=== PATIENT | female | born 1980 | race Two or more races ===

== ENCOUNTER 2017-09-17 14:50 | Observation (INO) | payer OTHER ==
[2017-09-17] MEDS ORDERED: SODIUM CHLORIDE 1,000 ML IV STA (14:59)
--- NOTE | 2017-09-17 14:59 | PDOC ---
Rapid Medical Evaluation Time Seen by Provider: 09/17/17 14:54 Medical Evaluation: 09/17/17 14:54 I have performed a brief in-person evaluation of this patient. The patient presents with a chief complaint of: sent in by PCP Luna, febrile x 5 days with abdominal pain, sweats, 30-40 episodes over past few days, vomited 8 times, muscle pain everywhere, "right kidney pain right under rib", concern for hemolytic uremic syndrome or acute renal failure, denies recent travel, drug use Pertinent physical exam findings: R CVAT I have ordered the following: labs, fluids, zofran The patient will proceed to the ED for further evaluation. Discharge Disposition - Diagnosis Abdominal pain - Referrals - Patient Instructions - Post Discharge Activity
[2017-09-17 15:02] VITALS: BMI 25.7
[2017-09-17] MEDS ORDERED: ONDANSETRON 4 MG/2 ML VIAL IVPUSH ONE (16:05)
[2017-09-17 16:19] LABS: BASO % 0.5 % (0-2.0); EOS % 0.7 % (0-4.5); HEMATOCRIT 41.5 % (32.4-45.2); HEMOGLOBIN 14.7 GM/dL (10.7-15.3); LYMPH % 33.2 % (8-40); MCH 31.8 pg (25.7-33.7); MCHC 35.4 g/dl (32.0-36.0); MEAN CELL VOLUME 89.9 fl (80-96); MEAN PLT VOLUME 8.1 fl (7.5-11.1); NEUT % 56.6 % (42.8-82.8); PLATELET COUNT 223 K/MM3 (134-434); RBC 4.62 M/mm3 (3.60-5.2); RDW 13.4 % (11.6-15.6); WHITE BLOOD COUNT 4.4 K/mm3 (4.0-10.0)
[2017-09-17 16:29] LABS: HCG,QUALITATIVE URINE NEGATIVE
[2017-09-17] MEDS ORDERED: ONDANSETRON 4 MG/2 ML VIAL ONE (16:29)
[2017-09-17 16:41] LABS: ALBUMIN 3.3 g/dl (3.4-5.0); ANION GAP 6 (8-16); BLOOD UREA NITROGEN 7 mg/dL (7-18); CALCIUM 7.8 mg/dL (8.5-10.1); CHLORIDE 108 mmol/L (98-107); CO2 25 mmol/L (21-32); CREATININE 0.6 mg/dL (0.55-1.02); GLUCOSE,RANDOM 82 mg/dL (74-106); LIPASE 103 U/L (73-393); POTASSIUM 3.9 mmol/L (3.5-5.1); SGOT/AST 21 U/L (15-37); SGPT/ALT 14 U/L (12-78); SODIUM 139 mmol/L (136-145)
[2017-09-17 16:43] LABS: ALK PHOS 41 U/L (45-117); BILIRUBIN,TOTAL 0.3 mg/dL (0.2-1.0); TOT PROT 6.8 g/dl (6.4-8.2)
--- NOTE | 2017-09-17 16:50 | PDOC ---
History of Present Illness - General Chief Complaint: Nausea/Vomiting Stated Complaint: SENT BY PCP Time Seen by Provider: 09/17/17 14:54 History Source: Patient Exam Limitations: No Limitations - History of Present Illness Initial Comments: 09/17/17 16:37 HPI: This 37-year-old female presents to the emergency room per her physician's request due to extensive loose stool for over a week. She's lost 10 pounds. She' s been drinking a lot of Gatorade however she's been having nausea and vomiting as well. She was away at [facility] in over 2 weeks ago, she was fine for a week after visiting there. She also had recent sushi and not sure if this caused either. She has not been eating anything. She's been trying to keep Gatorade in. She does have abdominal cramping, it may radiate sometimes to the back. There is a concern for C. difficile/Escherichia coli and she was sent to the emergency room for probable admission. Chief Compliant: Nausea, vomiting, diarrhea with bouts of fever PMH: depression, anxiety, FH: Pt has not recently traveled outside the country in the last 30 days. Pt has not been in contact with people who have traveled out of the country, in contact with people who have been ill with fever, n, v, d. SH: smoking use: NONE illicit drug use: NONE alcohol use: NONE lives with and two children, one with special needs. PSH: none Home med use noted on JUL Allergies:nka Immunizations: PCP: Ji Kang PERSONNEL ANALYST: LMP: G P : 09/17/17 16:54 Past History - Past Medical History Allergies/Adverse Reactions: Allergies Allergy/AdvReac Type Severity Reaction Status Date / Time No Known Allergies Allergy Verified 09/17/17 15:02 Home Medications: Ambulatory Orders Alprazolam 0.5 mg PO DAILY PRN 09/17/17 Ondansetron [Zofran -] 4 mg PO PRN PRN 09/17/17 Sertraline HCl 50 mg PO DAILY 09/17/17 COPD: No - Immunization History Immunization Up to Date: Yes - Suicide/Smoking/Psychosocial Hx Smoking History: Never smoked Have you smoked in the past 12 months: No Information on smoking cessation initiated: No Hx Alcohol Use: No Drug/Substance Use Hx: No Substance Use Type: None Review of Systems - Review of Systems Able to Perform ROS?: Yes Comments:: 09/17/17 17:05 General statement: Loose stool for one week Hematology: neg history of bleeding/blood thinners Skin: Neg for lesions, rash, bruising. HEENT: Neg symptoms Respiratory: Neg SOB or difficulty in breathing Cardiac: Neg chest pain GI: + diffuse pain,+ n/v/d : Neg problems on voiding MS: Neg for joint pain/stiffness, no edema Neuro: Neg for LOC, weakness, Endocrine: Neg for excess thirst/hunger, cold/heat intolerance, excess sweating Allergies: Neg for allergies *Physical Exam - Vital Signs Last Vital Signs Temp Pulse Resp BP Pulse Ox 98.2 F 93 H 16 111/81 100 09/17/17 14:58 09/17/17 14:58 09/17/17 14:58 09/17/17 14:58 09/17/17 14:58 - Physical Exam Comments: 09/17/17 17:05 General Appearance: This 37 yr old female with diarrhea, 10 lb weight lose, nausea, vomiting, fever. V/S: hemodynamically stable, afebrile current Skin: WNL of pt's skin color, no signs of pallor, mottling, cyanosis Head:symmetrical Eyes: EOM's intact, PERRLA Ears: denies pain Nose: patent Throat: lips, teeth, gums, tongue, buccal mucos pink and moist Lungs: Chest symmetry equal. Cap refill <3 seconds. Lung sounds clear Cardiac: PMI at R 4MCL space, pos S1 and S2, regular rate. Abdomen: Soft, round, + tender 3 loose bm this time : Not observed Muscularskeletal: Gait steady, ambulated in to ER, no edema +PMS Neuro: AAOx3, cognitively intact, speech clear and appropriate. ED Treatment Course - LABORATORY CBC & Chemistry Diagram: 09/17/17 15:34 09/17/17 15:34 - ADDITIONAL ORDERS Additional order review: Laboratory Results 09/17/17 15:31 Urine HCG, Qual Negative 09/17/17 15:34 RBC 4.62 MCV 89.9 MCHC 35.4 RDW 13.4 MPV 8.1 Neutrophils % 56.6 Lymphocytes % 33.2 Monocytes % 9.0 Eosinophils % 0.7 Basophils % 0.5 - RADIOLOGY Radiology Studies Ordered: Category Date Time Status ABDOMEN & PELVIS CT W/O CONTR [CT] Stat CT Scan 09/17/17 16:03 Ordered - Medications Given in the ED: ED Medications Discontinued Medications Generic Name Dose Route Start Last Admin Trade Name Parish PRN Reason Stop Dose Admin Sodium Chloride 1,000 mls @ 1,000 mls/hr 09/17/17 14:59 09/17/17 15:35 Normal Saline - IV 09/17/17 15:58 1,000 mls/hr ASDIR STA Administration Medical Decision Making - Medical Decision Making 09/17/17 17:07 A/P: 35 normally healthy 37 yr old female recent loose stool, n, v, 10 lbs weight lose, fevers on and off for one week -stool cx -stool occult -labs with electrolytes -IVF and lab repletements -zofran -ua -isolation r/o c diff 09/17/17 17:[address] neg for any findings labs stable IVF continue Diarrhea and lack of appeitite continue. *DC/Admit/Observation/Transfer Diagnosis at time of Disposition: Dehydration fever Abdominal pain Qualifiers: Abdominal location: generalized Qualified Code(s): R10.84 - Generalized abdominal pain - Discharge Dispostion Admit: Yes - Referrals Referrals: Harinder Carrasco [Primary Care Provider] - - Patient Instructions - Post Discharge Activity
--- NOTE | 2017-09-17 18:03 | PN ---
Teaching Attending Note Name of Resident: Micki Cameron ATTENDING PHYSICIAN STATEMENT I saw and evaluated the patient. I reviewed the resident's note and discussed the case with the resident. I agree with the resident's findings and plan as documented. SUBJECTIVE:37yo F with no PMH presenting to the ER due to persistent diarrhea. Diarrhea started all of a sudden on friday after eating some lox. assoc with abdominal cramping, flatulence and nausea. intermittent fever, highest recorded 102. has been unable to keep any food down at this time causing a 10lb weight loss. was at [employer] last week. no sick contacts and no one at home is sick. no reptiles in the house. has a disabled son who goes to many child programs throughout the week but he has not been sick. no increase stressors. no episodes in the past and is fairly regular (once a day) no autoimmune disease in the family. no hx of cancers. never had colonoscopy. OBJECTIVE: Last Vital Signs Temp Pulse Resp BP Pulse Ox 98.2 F 93 H 16 111/81 100 09/17/17 14:58 09/17/17 14:58 09/17/17 14:58 09/17/17 14:58 09/17/17 14:58 General mild distress due to pain CV S1 S2 RRR no murmur/rub/gallop Lungs CTA B/L no wheezing/rales/rhonchi Abdomen soft, slightly distended, RLQ/LLQ tenderness hypoactive BS Extremities no pedal edema rectal no external hemorrhoids, no stool or blood in rectal vault ASSESSMENT AND PLAN: 37yo F with no PMH presenting to the ER due to persistent diarrhea 1. Persistent diarrhea-likely infectious however can not r/o malabsorption or autoimmune. check stools for cdiff, O&P, bacterial infections, fecal fat. check CRP/ESR/TSH/vitamin B12. Gi consulted. may require colonoscopy. will trial clear liquid diet. cont IVF with pain and nausea control. can consider loperamide once cdiff is r/o. 2. DVT ppx-lovenox
[2017-09-17] MEDS ORDERED: ONDANSETRON 4 MG/2 ML VIAL IVPB PRN (18:38)
--- NOTE | 2017-09-17 18:40 | HP ---
CHIEF COMPLAINT: " Diarrhoea and I lost 10 lbs in 5 days" PCP: Dr. Gisselle Workman HISTORY OF PRESENT ILLNESS: Patient is a 37 year old female was sent from her PCP's office for evaluation of diarrhoea. As per the patient, she started having lose stool 5 days ago, clear, watery, yellowish in color, no blood, > 20 episodes/day, fowl smelling, bulky initially associated with nausea, burping and belching. It was associated with fever of 102 controlled with tylenol, had chills, sweating but no rigors. Patient then went to her PCP on 3 days ago for evaluation of diarrhea and was also diagnosed to have UTI (UA in the office: RBC 10, Bilirubin 4mg/dl; UB mg/dl; Protein 100 mg/dl; ketones 300, LE-75), was prescribed Nitrofurantoin 100mg BID (has taken 5 pills so far). Patient also complaints of crampy abdomen, 4/10 in intensity, intermittent, non radiating, tenesmus + About 2 weeks ago pt was at [facility] in [place], but didn't have any symptoms at that time. Denies dysuria, hematuria, urinary incontinence, increased frequency. Appetite has been decreased. Drinking Gadorade. Lost 10 Lbs since 5 days. Sleep disturbed. No h/o autoimmune disorders, no pets at home. Pt says that she takes care of 3 yrs old son who has genetic disorder and goes for almost 21 treatments a week, different places and day cares. No sick contacts. ER course was notable for: (1) Temp 100.6 F, hemodynamically stable (2) Abd/Pelvis CT: No acute pathology. 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 Smoking: Denies Alcohol: 2 glasses of wine daily, last drink 5 days ago. Drugs: Denies Family History: Non contributory Allergies No Known Allergies Allergy (Verified 09/17/17 15:02) HOME MEDICATIONS: Home Medications Medication Instructions Recorded Alprazolam 0.5 mg PO DAILY PRN 09/17/17 Ondansetron [Zofran -] 4 mg PO PRN PRN 09/17/17 Sertraline HCl 50 mg PO DAILY 09/17/17 REVIEW OF SYSTEMS CONSTITUTIONAL: Absent: fever, chills, diaphoresis, generalized weakness, malaise, loss of appetite, weight change HEENT: Absent: rhinorrhea, nasal congestion, throat pain, throat swelling, difficulty swallowing, mouth swelling, ear pain, eye pain, visual changes CARDIOVASCULAR: Absent: chest pain, syncope, palpitations, irregular heart rate, lightheadedness , peripheral edema RESPIRATORY: Absent: cough, shortness of breath, dyspnea with exertion, orthopnea, wheezing, stridor, hemoptysis GASTROINTESTINAL: Present: abdominal pain, nausea, vomiting, diarrhoea. Absent: abdominal distension, constipation, melena, hematochezia GENITOURINARY: Absent: dysuria, frequency, urgency, hesitancy, hematuria, flank pain, genital pain MUSCULOSKELETAL: Absent: myalgia, arthralgia, joint swelling, back pain, neck pain SKIN: Absent: rash, itching, pallor HEMATOLOGIC/IMMUNOLOGIC: Absent: easy bleeding, easy bruising, lymphadenopathy, frequent infections ENDOCRINE: Absent: unexplained weight gain, unexplained weight loss, heat intolerance, cold intolerance NEUROLOGIC: Absent: headache, focal weakness or paresthesias, dizziness, unsteady gait, seizure, mental status changes, bladder or bowel incontinence PSYCHIATRIC: Absent: anxiety, depression, suicidal or homicidal ideation, hallucinations. PHYSICAL EXAMINATION Vital Signs - 24 hr 09/17/17 14:58 Temperature 98.2 F Pulse Rate 93 H Respiratory 16 Rate Blood Pressure 111/81 O2 Sat by Pulse 100 Oximetry (%) GENERAL: Young female, Awake, alert, and fully oriented, in no acute distress. HEAD: Normal with no signs of trauma. EYES: EOM intact, no pallor or icterus. EARS, NOSE, THROAT: Ears normal. Moist mucous membranes. NECK: Supple. LUNGS: Breath sounds equal, clear to auscultation bilaterally. No wheezes, and no crackles. No accessory muscle use. HEART: Regular rate and rhythm, normal S1 and S2 without murmur. ABDOMEN: Soft, tenderness on the left and right lower quadrant, not distended, normoactive bowel sounds, no guarding, no rebound, no masses. No hepatomegaly or splenomegaly. MUSCULOSKELETAL: Normal range of motion at all joints. No bony deformities or tenderness. No CVA tenderness. UPPER EXTREMITIES: 2+ pulses, warm, well-perfused. No cyanosis. No clubbing. No peripheral edema. LOWER EXTREMITIES: 2+ pulses, warm, well-perfused. No calf tenderness. No peripheral edema. NEUROLOGICAL: No facial droop, Cranial nerves II-XII intact. Normal speech. Normal gait. PSYCHIATRIC: Cooperative. Good eye contact. Appropriate mood and affect. SKIN: Warm, dry, normal turgor, no rashes or lesions noted, normal capillary refill. Laboratory Results - last 24 hr 09/17/17 09/17/17 09/17/17 15:31 15:34 15:34 WBC 4.4 RBC 4.62 Hgb 14.7 Hct 41.5 MCV 89.9 MCH 31.8 MCHC 35.4 RDW 13.4 Plt Count 223 MPV 8.1 Neutrophils % 56.6 Lymphocytes % 33.2 Monocytes % 9.0 Eosinophils % 0.7 Basophils % 0.5 Sodium 139 Potassium 3.9 Chloride 108 H Carbon Dioxide 25 Anion Gap 6 L BUN 7 Creatinine 0.6 Creat Clearance w eGFR > 60 Random Glucose 82 Calcium 7.8 L Total Bilirubin 0.3 AST 21 ALT 14 Alkaline Phosphatase 41 L Total Protein 6.8 Albumin 3.3 L Lipase 103 Urine HCG, Qual Negative Stool Occult Blood 09/17/17 16:23 WBC RBC Hgb Hct MCV MCH MCHC RDW Plt Count MPV Neutrophils % Lymphocytes % Monocytes % Eosinophils % Basophils % Sodium Potassium Chloride Carbon Dioxide Anion Gap BUN Creatinine Creat Clearance w eGFR Random Glucose Calcium Total Bilirubin AST ALT Alkaline Phosphatase Total Protein Albumin Lipase Urine HCG, Qual Stool Occult Blood Negative Abd/Pelvis CT: No acute pathology. Multiple mesenteric Lymph nodes in LUQ and LLQ ASSESSMENT/PLAN: Patient is a 37 year old female with past medical hx of Depression, Anxiety was sent from her PCP's office for evaluation of diarrhoea. # Diarrhoea- unknown cause c/o > 20 lose stool diarrhoea, no blood, x 5 days, associated with nausea and belching, fever, lost 10 lbs in 5days. R/O infectious cause-viral vs bacteria, inflammatory, autoimmune, HIV CT abdomen/Pelvis: No acute pathology Admit in Med-Surg/Obs IV NS @ 125 mls.hr IV Zofran 4mg Q6H PRN IV Tylenol 650mg PO Q6H PRN for fever No antibiotics at this time. Stool cultures, stool studies-ova, parasite, salmonella/shigella, vibrio sent GI consult requested HIV test sent (verbal consent taken). # Asymptomatic shaista Was treated with Nitrofurantoin as outpatient. She is asymptomatic so will not treat her at this time. # Depression/Anxiety Continue Xanax and Sertraline # FEN IV NS @ 125 mls/hr Electrolytes WNL Liquid diet, advance as tolerated # Prophylaxis For DVT: Lovenox 40mg sq daily For GI: Not indicated # Code Status: Full Code # Dispo: Admit in Med-Surg/Obs. Illness, Investigation and Plan of care explained to the patient. She verbalized understanding. Case seen and discussed with Dr. Camargo. Visit type - Emergency Visit Emergency Visit: Yes ED Registration Date: 09/17/17 Care time: The patient presented to the Emergency Department on the above date and was hospitalized for further evaluation of their emergent condition. - New Patient This patient is new to me today: Yes Date on this admission: 09/17/17 - Critical Care Critical Care patient: No Hospitalist Screening - Colonoscopy Questionnaire Colonoscopy Questionnaire: Colonoscopy Questionnaire - Patient: 50 - 75 years old and never had a screening colonoscopy: No History of colon or rectal polyps, or CA: No History of IBD, Crohn's disease or UC: No History of abdominal radiation therapy as a child: No - Relative: 1 with colon or rectal CA, or polyps at age 60 or younger: No Colon or rectal CA diagnosed at age 45 or younger: No Multiple relatives with colon or rectal CA: No - Outcome: Screening Result: Negative Screen
[2017-09-17] MEDS ORDERED: ACETAMINOPHEN 325 MG TABLET (FP) ONE (19:27)
[2017-09-17] MEDS ORDERED: ALPRAZolam 0.25 MG TABLET PO PRN (19:29)
[2017-09-17] MEDS: ACETAMINOPHEN 325 MG TABLET (FP) PO PRN (19:43)
[2017-09-17] MEDS: SODIUM CHLORIDE 1,000 ML IV SCH (19:43)
[2017-09-17] MEDS ORDERED: SERTRALINE HCL 50 MG TABLET (FP) ONE (19:58)
[2017-09-17] MEDS: SERTRALINE HCL 50 MG TABLET (FP) PO SCH (20:19)
[2017-09-17 21:00] LABS: URINE APPEARANCE SLCLOUDY; URINE BILIRUBIN NEGATIVE (<2.0 mg/dL); URINE BLOOD 1+ (NEGATIVE); URINE COLOR AMBER; URINE GLUCOSE (UA) NEGATIVE (NEGATIVE); URINE KETONE 1+ (NEGATIVE); URINE LEUK ESTERASE TRACE (NEGATIVE); URINE NITRITE NEGATIVE (NEGATIVE); URINE UROBILINOGEN NEGATIVE mg/dL (0.2-1.0)
[2017-09-17 21:02] LABS: URINE PROTEIN 1+ (NEGATIVE)
[2017-09-17 21:03] LABS: EPI CELLS RARE /HPF (FEW); URINE BACTERIA RARE /hpf (NONE SEEN); URINE MUCUS RARE
[2017-09-18] MEDS: SODIUM CHLORIDE 1,000 ML IV SCH (00:40)
--- NOTE | 2017-09-18 06:55 | PN ---
Physical Exam: 24H Events: Yesterday: diarrhea after eating regular food in ED O/N: 3x episodes BM, more formed and not malodorous AM: tolerated Clears liquid for breakfast SUBJECTIVE: Patient seen and examined. No fever, chills, n/v, abdominal pain. Denies any urinary symptoms. BM frequency declining, and stools more formed. Wishes to go home as have young children at home. OBJECTIVE: Vital Signs Period Temp Pulse Resp BP Sys/Crowell Pulse Ox Last 24 Hr 98.1 F-101 F 65-93 16-20 100-111/52-81 98-100 General: lying comfortably in bed, nad and well-appearing Heart: rrr, normal s1/s2 Lungs: CTAB Abd: soft, non-distended, mild ttp LLQ>LUQ Ext: 2+DP pulses, wwp, no edema CBC, BMP 09/18/17 06:30 09/18/17 06:30 Hepatic Panel Total Bilirubin 0.3 mg/dL (0.2-1.0) 09/17/17 15:34 AST 21 U/L (15-37) 09/17/17 15:34 ALT 14 U/L (12-78) 09/17/17 15:34 Alkaline Phosphatase 41 U/L (45-117) L 09/17/17 15:34 Albumin 3.3 g/dl (3.4-5.0) L 09/17/17 15:34 CRP - 5.3 (H) ESR - 11 TSH - 1.30 Active Medications Acetaminophen (Tylenol -) 650 mg PO Q6H PRN PRN Reason: PAIN LEVEL 7 - 10 Last Admin: 09/17/17 19:43 Dose: 650 mg Alprazolam (Xanax -) 0.5 mg PO Q24H PRN PRN Reason: ANXIETY Enoxaparin Sodium (Lovenox -) 40 mg SQ DAILY [facility] Sodium Chloride (Normal Saline -) 1,000 mls @ 125 mls/hr IV ASDIR [facility] Last Admin: 09/18/17 00:40 Dose: 125 mls/hr Ondansetron HCl (Zofran Injection) 4 mg IVPB Q6H PRN PRN Reason: NAUSEA Last Admin: 09/18/17 00:47 Dose: 4 mg Sertraline HCl (Zoloft -) 50 mg PO DAILY [facility] Last Admin: 09/17/17 20:19 Dose: 50 mg ASSESSMENT/PLAN: 37yo woman with PMH of depression and anxiety who sent from PCP office for evaluation of acute onset non-bloody, watery diarrhea. #diarrhea, unclear etiology, improved since admission, CT A/P w/o acute findings, ESR and CRP mildly elevated c/w inflammatory process, TSH wnl, HIV neg -GI consulted -Celiac panel pending -Infectious w/u pending: C diff, Stool culture, O&P -TSH wnl -Zofran PRN for nausea -IVFs -Continue Clear diet #depression/anxiety - c/w home Xanax and Sertraline #FEN NS@125cc lyte wnl Clear #PPX - Lovenox SQ QD #DISPO - Obs m/s, possible discharge this evening if okay with GI and patient remains afebrile w/o worsening symptoms Full Code d/w Dr. Raman Lindsey MD PGY1 - Internal Medicine Visit type - Emergency Visit Emergency Visit: No - New Patient This patient is new to me today: Yes Date on this admission: 09/18/17 - Critical Care Critical Care patient: No
[2017-09-18 08:04] LABS: HEMATOCRIT 36.8 % (32.4-45.2); MCH 31.6 pg (25.7-33.7); MCHC 35.4 g/dl (32.0-36.0); MEAN CELL VOLUME 89.3 fl (80-96); MEAN PLT VOLUME 7.7 fl (7.5-11.1); PLATELET COUNT 198 K/MM3 (134-434); RBC 4.13 M/mm3 (3.60-5.2); WHITE BLOOD COUNT 3.4 K/mm3 (4.0-10.0)
[2017-09-18 08:23] LABS: ANION GAP 6 (8-16); BLOOD UREA NITROGEN 4 mg/dL (7-18); CALCIUM 7.3 mg/dL (8.5-10.1); CHLORIDE 112 mmol/L (98-107); CO2 25 mmol/L (21-32); GLUCOSE,RANDOM 87 mg/dL (74-106); POTASSIUM 3.5 mmol/L (3.5-5.1); SODIUM 143 mmol/L (136-145)
[2017-09-18 08:26] LABS: CREATININE 0.5 mg/dL (0.55-1.02); PHOSPHOROUS 2.6 mg/dL (2.5-4.9)
[2017-09-18] MEDS ORDERED: ENOXAPARIN NA (PORCINE) 40 MG/0.4 ML DISP.SYRIN SQ SCH (10:00)
[2017-09-18] MEDS: SERTRALINE HCL 50 MG TABLET (FP) PO SCH (10:13)
[2017-09-18 10:38] LABS: ACANTHOCYTES 0; ANISOCYTOSIS 0; HELMET CELLS 0; HOWELL-JOLLY BODIES 0; MACROCYTOSIS 0; OVALOCYTE 0; PLATELET ESTIMATE NORMAL; ROULEAU 0; SICKELED CELLS 0; TARGET CELLS 0; TEAR DROP CELLS 0; TOXIC GRANULATION 0
[2017-09-18] MEDS: ACETAMINOPHEN 325 MG TABLET (FP) PO PRN (10:59)
--- NOTE | 2017-09-18 12:10 | PN ---
Teaching Attending Note Name of Resident: Marguerite Lindsey ATTENDING PHYSICIAN STATEMENT I saw and evaluated the patient. I reviewed the resident's note and discussed the case with the resident. I agree with the resident's findings and plan as documented. SUBJECTIVE:pain has mostly resolved. had 3 BM last night that were more formed. states only 1 this AM that was also formed. did have fever last night but no assoc chills. tolerating liquid diet. requesting to go home. denies CP, SOB, fever, chills, N/V OBJECTIVE: Last Vital Signs Temp Pulse Resp BP Pulse Ox 97.9 F 63 20 110/60 98 09/18/17 10:00 09/18/17 10:00 09/18/17 10:00 09/18/17 10:00 09/18/17 01:39 General NAD Abdomen soft, NT/ND, no rebound or guarding ASSESSMENT AND PLAN: 37yo F with no PMH presenting to the ER due to persistent diarrhea 1. Persistent diarrhea-likely infectious however can not r/o malabsorption or autoimmune. now resolved which points towards a viral cause. TSH WNL. HIV negative. awaiting stool studies. did have Tm 101 last night and was bryan- cultured. no results at this time. will wait for GI evaluation. f/u workup 2. DVT ppx-lovenox 3. pt requesting to go home as she has young children. stated will re-evaluate in the evening. if continues to do well, afebrile and if no furhter workup indicated inpatient per GI may send home in the evening.
--- NOTE | 2017-09-18 12:47 | MSN ---
Progress Note (SOAP) - Subjective Chief Complaint: diarrhea and weight loss History of Present Illness: Aurora Robertson is a 37 year old female with a PMHx of depression, anxiety, and recently diagnosed UTI. Patient stated that 5 days prior to admission she began to have clear, watery, yellowish, foul smelling, non-bloody diarrhea. Patient stated that she had greater than 20 episodes per day, up to 40 episodes on occasion. Patient stated that these episodes were associated with nausea, vomiting, cramping, burping. Patient also stated that she had fevers, chills, sweating. Patient also stated that she had lost 10lbs over the course of the illness. The patient had recent travel to [place] to the [facility], but stated that she did not have any foods out of her usual diet. Patient denied any changes in diet, sick contacts, lactose intolerance, history of GI issues, drinking unfiltered water. Recently the patient had gone to her PCP for evaluation of the diarrhea and was found to have a UTI based on UA. The patient was started on nitrofurantoin, the patient had completed 2 days worth of treatment prior to admission. The patient was admitted and started on IV NS at 125cc/hr, given Zofran, tylenol. Abdominal CT did not show any evidence of obstruction, diverticulitis, colitis but did show multiple prominent mesenteric lymph nodes in the LUQ and LLQ. Stool cultures, c diff toxin, TSH, ESR/CRP, O&P, FOBT were collected. Patient was seen and examined at the bedside. Patient stated that she had 3 episodes of diarrhea since her admission and 1 more this morning and stated that her stool were more formed than previously. Patient stated that she continued to have some episodes of nausea but were improved since admission with no more episodes of vomiting. Patient did endorse myalgias, weakness, mild headache, mild back pain. The patient denied chest pain, shortness of breath, abd pain at rest, numbness/tingling. Patient denied pain with bowel movements. - Current Medications Current Medications: Active Medications Acetaminophen (Tylenol -) 650 mg PO Q6H PRN PRN Reason: PAIN LEVEL 7 - 10 Last Admin: 09/18/17 10:59 Dose: 650 mg Alprazolam (Xanax -) 0.5 mg PO Q24H PRN PRN Reason: ANXIETY Enoxaparin Sodium (Lovenox -) 40 mg SQ DAILY [facility] Last Admin: 09/18/17 10:13 Dose: 40 mg Sodium Chloride (Normal Saline -) 1,000 mls @ 125 mls/hr IV ASDIR [facility] Last Admin: 09/18/17 00:40 Dose: 125 mls/hr Ondansetron HCl (Zofran Injection) 4 mg IVPB Q6H PRN PRN Reason: NAUSEA Last Admin: 09/18/17 00:47 Dose: 4 mg Sertraline HCl (Zoloft -) 50 mg PO DAILY [facility] Last Admin: 09/18/17 10:13 Dose: 50 mg - Objective Vital Signs: Vital Signs Temperature 97.9 F 09/18/17 10:00 Pulse Rate 63 09/18/17 10:00 Respiratory Rate 20 09/18/17 10:00 Blood Pressure 110/60 09/18/17 10:00 O2 Sat by Pulse Oximetry (%) 98 09/18/17 01:39 Constitutional: Yes: Well Nourished, No Distress, Calm Eyes: Yes: WNL, Conjunctiva Clear, EOM Intact HENT: Yes: WNL, Atraumatic, Normocephalic Neck: Yes: WNL, Supple, Trachea Midline Cardiovascular: Yes: WNL, Regular Rate and Rhythm, S1, S2 Respiratory: Yes: WNL, Regular, CTA Bilaterally Gastrointestinal: Yes: Normal Bowel Sounds, Soft, Tenderness (mild tenderness in the LUQ and LLQ) ...Rectal Exam: Yes: Deferred Musculoskeletal: Yes: Muscle Weakness (endorsed some weakness 2/2 tiredness, no focal tenderness or neuromuscular weakness) Extremities: Yes: WNL Peripheral Pulses WNL: Yes Peripheral Pulses: Left Radial: 2+, Right Radial: 2+, Left [place] Pedis: 2+, Right Dorsalis Pedis: 2+ Edema: No Integumentary: Yes: WNL Neurological: Yes: WNL, Alert, Oriented, Cran Nerves II-XII Intact ...Motor Strength: Yes: WNL Psychiatric: Yes: WNL, Alert, Oriented Labs Lab Results: CBC, BMP 09/18/17 06:30 09/18/17 06:30 Imaging - Results Cat Scan: Report Reviewed, Image Reviewed Problem List - Problems (1) Diarrhea Code(s): R19.7 - DIARRHEA, UNSPECIFIED (2) Abdominal pain Code(s): R10.9 - UNSPECIFIED ABDOMINAL PAIN Qualifiers: Abdominal location: generalized Qualified Code(s): R10.84 - Generalized abdominal pain Assessment/Plan Diarrhea - CT abdomen/Pelvis did not show any evidence of obstruction, diverticulitis, colitis. Did show multiple prominent mesenteric lymph nodes in LUQ and LLQ - FOBT negative - patient remained afebrile since admission, no WBC - patient improving symptomatically - NS at 125 cc/hr - IV Zofran 4mg q6h prn nausea/vomiting - IV Tylenol 650mg q6h prn fever - Stool cultures, stool studies, O&P pending - C diff negative - GI consult, recs appreciated - HIV negative - TSH/B12 within normal limits Depression/Anxiety - Continue home Xanax and Sertraline F/E/N - NS at 125cc/hr - Liquid diet, advance as tolerated - continue to monitor DVT Prophylaxis - Lovenox 40mg Disposition - Admitted to Med-Surg/Obs. Patient safe to be discharged home, to f/u outpatient
--- NOTE | 2017-09-18 14:37 | CON.GI ---
Consult Consult Specialty:: GI Reason for Consultation:: diarrhea, weight loss - History of Present Illness History of Present Illness: healthy, 37-year-old female who developed frequent, watery bowel movements over acute onset 5-6 days ago. Just prior to that had URI. was also diagnosed with UTI in the interim and to look 3 pills of antibiotics. her household members are asymptomatic. no history of eating out, changes in diet , medications, traveling, camping. Reports 5-10 pound weight loss over the last week. No history of chronic weight loss, dysphagia, odynophagia, dyspepsia , melena, hematochezia, hematemesis, mucus in stool, jaundice, low-grade fever. No personal, family history of inflammatory bowel disease. Does not take chronic NSAIDs. Tolerates gluten containing products and any product without issues. At the time of this encounter bowel habits have improved. He had one formed bowel movement today. Denies abdominal pain. Tolerating current diet and was to go home. - History Source History Provided By: Patient - Alcohol/Substance Use Hx Alcohol Use: No - Smoking History Smoking history: Never smoked Have you smoked in the past 12 months: No Home Medications - Allergies Allergies/Adverse Reactions: Allergies Allergy/AdvReac Type Severity Reaction Status Date / Time No Known Allergies Allergy Verified 09/17/17 15:02 - Home Medications Home Medications: Ambulatory Orders Alprazolam 0.5 mg PO DAILY PRN 09/17/17 Ondansetron [Zofran -] 4 mg PO PRN PRN 09/17/17 Sertraline HCl 50 mg PO DAILY 09/17/17 Family Disease History - Family Disease History Family History: Unremarkable (noncontributory) Review of Systems Findings/Remarks: as stated in the H&P and HPI Physical Exam-GI Vital Signs: Vital Signs Temperature 97.9 F 09/18/17 10:00 Pulse Rate 63 09/18/17 10:00 Respiratory Rate 20 09/18/17 10:00 Blood Pressure 110/60 09/18/17 10:00 O2 Sat by Pulse Oximetry (%) 98 09/18/17 01:39 Constitutional: Yes: Well Nourished, No Distress, Calm Eyes: Yes: Conjunctiva Clear HENT: Yes: Atraumatic Neck: Yes: Supple Cardiovascular: Yes: Regular Rate and Rhythm Respiratory: Yes: Regular Gastrointestinal Inspection: No: Ascites, Distention ...Auscultate: Yes: Normoactive Bowel Sounds ...Palpate: Yes: Firm/Rigid, Soft. No: Tenderness Neurological: Yes: Alert, Oriented Labs: CBC, BMP 09/18/17 06:30 09/18/17 06:30 Laboratory Tests 09/17/17 09/17/17 09/17/17 15:31 15:34 15:34 WBC 4.4 RBC 4.62 Hgb 14.7 Hct 41.5 MCV 89.9 MCH 31.8 MCHC 35.4 RDW 13.4 Plt Count 223 MPV 8.1 Neutrophils % 56.6 Neutrophils % (Manual) Band Neutrophils % Lymphocytes % 33.2 Lymphocytes % (Manual) Monocytes % 9.0 Monocytes % (Manual) Eosinophils % 0.7 Eosinophils % (Manual) Basophils % 0.5 Basophils % (Manual) Myelocytes % (Man) Promyelocytes % (Man) Blast Cells % (Manual) Nucleated RBC % Metamyelocytes Hypochromia Toxic Granulation Dohle Bodies Platelet Estimate Platelet Comment Polychromasia Poikilocytosis Basophilic Stippling Anisocytosis Microcytosis Macrocytosis Spherocytes Sickle Cells Target Cells Tear Drop Cells Ovalocytes Stomatocytes Helmet Cells [place] Bodies [place] Rings Cee Cells Acanthocytes (Spur) Rouleaux Fragmented RBCs Schistocytes ESR Sodium 139 Potassium 3.9 Chloride 108 H Carbon Dioxide 25 Anion Gap 6 L BUN 7 Creatinine 0.6 Creat Clearance w eGFR > 60 Random Glucose 82 Calcium 7.8 L Phosphorus Magnesium Total Bilirubin 0.3 AST 21 ALT 14 Alkaline Phosphatase 41 L C-Reactive Protein Total Protein 6.8 Albumin 3.3 L Lipase 103 Vitamin B12 TSH Urine Color Jaimee Urine Appearance Slcloudy Urine pH 5.0 Ur Specific [place] 1.020 Urine Protein 1+ H Urine Glucose (UA) Negative Urine Ketones 1+ H Urine Blood 1+ H Urine Nitrite Negative Urine Bilirubin Negative Urine Urobilinogen Negative Ur Leukocyte Esterase Trace Urine WBC (Auto) 7 Urine RBC (Auto) 8 Ur Epithelial Cells Rare Urine Bacteria Rare Urine Mucus Rare Urine HCG, Qual Negative Stool Neutral Fats Stool Total Fats Stool Occult Blood HIV 1&2 Antibody Screen HIV P24 Antigen 09/17/17 09/17/17 09/18/17 16:23 23:40 06:30 WBC RBC Hgb Hct MCV MCH MCHC RDW Plt Count MPV Neutrophils % Neutrophils % (Manual) Band Neutrophils % Lymphocytes % Lymphocytes % (Manual) Monocytes % Monocytes % (Manual) Eosinophils % Eosinophils % (Manual) Basophils % Basophils % (Manual) Myelocytes % (Man) Promyelocytes % (Man) Blast Cells % (Manual) Nucleated RBC % Metamyelocytes Hypochromia Toxic Granulation Dohle Bodies Platelet Estimate Platelet Comment Polychromasia Poikilocytosis Basophilic Stippling Anisocytosis Microcytosis Macrocytosis Spherocytes Sickle Cells Target Cells Tear Drop Cells Ovalocytes Stomatocytes Helmet Cells [place] Bodies [place] Rings [place] Cells Acanthocytes (Spur) Rouleaux Fragmented RBCs Schistocytes ESR Sodium Potassium Chloride Carbon Dioxide Anion Gap BUN Creatinine Creat Clearance w eGFR Random Glucose Calcium Phosphorus Magnesium Total Bilirubin AST ALT Alkaline Phosphatase C-Reactive Protein 5.3 H Total Protein Albumin Lipase Vitamin B12 TSH 1.30 Urine Color Urine Appearance Urine pH Ur Specific [place] Urine Protein Urine Glucose (UA) Urine Ketones Urine Blood Urine Nitrite Urine Bilirubin Urine Urobilinogen Ur Leukocyte Esterase Urine WBC (Auto) Urine RBC (Auto) Ur Epithelial Cells Urine Bacteria Urine Mucus Urine HCG, Qual Stool Neutral Fats Stool Total Fats Stool Occult Blood Negative HIV 1&2 Antibody Screen Negative HIV P24 Antigen Negative 09/18/17 09/18/17 09/18/17 06:30 06:30 06:30 WBC 3.4 L RBC 4.13 Hgb 13.0 D Hct 36.8 MCV 89.3 MCH 31.6 MCHC 35.4 RDW 13.0 Plt Count 198 MPV 7.7 Neutrophils % No Result Required. Neutrophils % (Manual) 32.3 L Band Neutrophils % 3.0 Lymphocytes % No Result Required. Lymphocytes % (Manual) 27.3 Monocytes % Monocytes % (Manual) 12 H Eosinophils % Eosinophils % (Manual) 0.0 Basophils % Basophils % (Manual) 1.0 Myelocytes % (Man) 0 Promyelocytes % (Man) 0 Blast Cells % (Manual) 0 Nucleated RBC % 0 Metamyelocytes 0 Hypochromia 0 Toxic Granulation 0 Dohle Bodies 0 Platelet Estimate Normal Platelet Comment Present Polychromasia 0 Poikilocytosis 0 Basophilic Stippling 0 Anisocytosis 0 Microcytosis 0 Macrocytosis 0 Spherocytes 0 Sickle Cells 0 Target Cells 0 Tear Drop Cells 0 Ovalocytes 0 Stomatocytes 0 Helmet Cells 0 [place] Bodies 0 [place] Rings 0 Cee Cells 0 Acanthocytes (Spur) 0 Rouleaux 0 Fragmented RBCs 0 Schistocytes 0 ESR 11 Sodium 143 Potassium 3.5 Chloride 112 H Carbon Dioxide 25 Anion Gap 6 L BUN 4 L Creatinine 0.5 L Creat Clearance w eGFR Random Glucose 87 Calcium 7.3 L Phosphorus 2.6 Magnesium 2.0 Total Bilirubin AST ALT Alkaline Phosphatase C-Reactive Protein Total Protein Albumin Lipase Vitamin B12 575 TSH Urine Color Urine Appearance Urine pH Ur Specific [place] Urine Protein Urine Glucose (UA) Urine Ketones Urine Blood Urine Nitrite Urine Bilirubin Urine Urobilinogen Ur Leukocyte Esterase Urine WBC (Auto) Urine RBC (Auto) Ur Epithelial Cells Urine Bacteria Urine Mucus Urine HCG, Qual Stool Neutral Fats Stool Total Fats Stool Occult Blood HIV 1&2 Antibody Screen HIV P24 Antigen 09/18/17 09/18/17 06:30 06:30 WBC RBC Hgb Hct MCV MCH MCHC RDW Plt Count MPV Neutrophils % Neutrophils % (Manual) Band Neutrophils % Lymphocytes % Lymphocytes % (Manual) Monocytes % Monocytes % (Manual) Eosinophils % Eosinophils % (Manual) Basophils % Basophils % (Manual) Myelocytes % (Man) Promyelocytes % (Man) Blast Cells % (Manual) Nucleated RBC % Metamyelocytes Hypochromia Toxic Granulation Dohle Bodies Platelet Estimate Platelet Comment Polychromasia Poikilocytosis Basophilic Stippling Anisocytosis Microcytosis Macrocytosis Spherocytes Sickle Cells Target Cells Tear Drop Cells Ovalocytes Stomatocytes Helmet Cells [place] Bodies [place] Rings Cee Cells Acanthocytes (Spur) Rouleaux Fragmented RBCs Schistocytes ESR Sodium Potassium Chloride Carbon Dioxide Anion Gap BUN Creatinine Creat Clearance w eGFR Random Glucose Calcium Phosphorus Magnesium Total Bilirubin AST ALT Alkaline Phosphatase C-Reactive Protein Total Protein Albumin Lipase Vitamin B12 Cancelled TSH Urine Color Urine Appearance Urine pH Ur Specific [place] Urine Protein Urine Glucose (UA) Urine Ketones Urine Blood Urine Nitrite Urine Bilirubin Urine Urobilinogen Ur Leukocyte Esterase Urine WBC (Auto) Urine RBC (Auto) Ur Epithelial Cells Urine Bacteria Urine Mucus Urine HCG, Qual Stool Neutral Fats Cancelled Stool Total Fats Cancelled Stool Occult Blood HIV 1&2 Antibody Screen HIV P24 Antigen Imaging - Results Cat Scan: Report Reviewed ( prominent lymph nodes of normal size. I) Problem List - Problems (1) Viral gastroenteritis Code(s): A08.4 - VIRAL INTESTINAL INFECTION, UNSPECIFIED (2) Dehydration Code(s): E86.0 - DEHYDRATION Assessment/Plan At 37-year-old female, with acute onset diarrhea and dehydration while recovering from URI. This is most likely acute viral gastroenteritis, which is rapidly resolving. Patient is asymptomatic and had formed stool today. Tolerating current diet. She wants to go home. Supportive care. Okay to DC home if tolerating by mouth hydration and bland diet. Avoid dairy products and high fat diet for the next 2 weeks. Follow-up with GI in one week if not better. I
[2017-09-18 15:32] VITALS: PULSE 62
--- NOTE | 2017-09-18 16:29 | DS ---
Physical Exam: SUBJECTIVE: Patient seen and examined OBJECTIVE: Vital Signs Period Temp Pulse Resp BP Sys/[place] Pulse Ox Last 24 Hr 97.9 F-101 F 62-65 20-20 100-140/52-73 98 PHYSICAL EXAM GENERAL: The patient is awake, alert, and fully oriented, in no acute distress. HEAD: Normal with no signs of trauma. EYES: PERRL, extraocular movements intact, sclera anicteric, conjunctiva clear. ENT: Ears normal, nares patent, oropharynx clear without exudates, moist mucous membranes. NECK: Trachea midline, full range of motion, supple. LUNGS: Breath sounds equal, clear to auscultation bilaterally, no wheezes, no crackles, no accessory muscle use. HEART: Regular rate and rhythm, S1, S2 without murmur, rub or gallop. ABDOMEN: Soft, nontender, nondistended, normoactive bowel sounds, no guarding, no rebound, no hepatosplenomegaly, no masses. EXTREMITIES: 2+ pulses, warm, well-perfused, no edema. NEUROLOGICAL: Cranial nerves II through XII grossly intact. Normal speech, gait not observed. PSYCH: Normal mood, normal affect. SKIN: Warm, dry, normal turgor, no rashes or lesions noted. LABS Laboratory Results - last 24 hr 09/17/17 09/17/17 09/17/17 15:31 15:34 16:23 WBC RBC Hgb Hct MCV MCH MCHC RDW Plt Count MPV Neutrophils % Neutrophils % (Manual) Band Neutrophils % Lymphocytes % Lymphocytes % (Manual) Monocytes % (Manual) Eosinophils % (Manual) Basophils % (Manual) Myelocytes % (Man) Promyelocytes % (Man) Blast Cells % (Manual) Nucleated RBC % Metamyelocytes Hypochromia Toxic Granulation Dohle Bodies Platelet Estimate Platelet Comment Polychromasia Poikilocytosis Basophilic Stippling Anisocytosis Microcytosis Macrocytosis Spherocytes Sickle Cells Target Cells Tear Drop Cells Ovalocytes Stomatocytes Helmet Cells [place] Bodies [place] Rings Cee Cells Acanthocytes (Spur) Rouleaux Fragmented RBCs Schistocytes ESR Sodium 139 Potassium 3.9 Chloride 108 H Carbon Dioxide 25 Anion Gap 6 L BUN 7 Creatinine 0.6 Creat Clearance w eGFR > 60 Random Glucose 82 Calcium 7.8 L Phosphorus Magnesium Total Bilirubin 0.3 AST 21 ALT 14 Alkaline Phosphatase 41 L C-Reactive Protein Total Protein 6.8 Albumin 3.3 L Lipase 103 Vitamin B12 TSH Urine Color Jaimee Urine Appearance Slcloudy Urine pH 5.0 Ur Specific [place] 1.020 Urine Protein 1+ H Urine Glucose (UA) Negative Urine Ketones 1+ H Urine Blood 1+ H Urine Nitrite Negative Urine Bilirubin Negative Urine Urobilinogen Negative Ur Leukocyte Esterase Trace Urine WBC (Auto) 7 Urine RBC (Auto) 8 Ur Epithelial Cells Rare Urine Bacteria Rare Urine Mucus Rare Urine HCG, Qual Negative Stool Neutral Fats Stool Total Fats Stool Occult Blood Negative HIV 1&2 Antibody Screen HIV P24 Antigen 09/17/17 09/18/17 09/18/17 23:40 06:30 06:30 WBC RBC Hgb Hct MCV MCH MCHC RDW Plt Count MPV Neutrophils % Neutrophils % (Manual) Band Neutrophils % Lymphocytes % Lymphocytes % (Manual) Monocytes % (Manual) Eosinophils % (Manual) Basophils % (Manual) Myelocytes % (Man) Promyelocytes % (Man) Blast Cells % (Manual) Nucleated RBC % Metamyelocytes Hypochromia Toxic Granulation Dohle Bodies Platelet Estimate Platelet Comment Polychromasia Poikilocytosis Basophilic Stippling Anisocytosis Microcytosis Macrocytosis Spherocytes Sickle Cells Target Cells Tear Drop Cells Ovalocytes Stomatocytes Helmet Cells [place] Bodies [place] Rings Cee Cells Acanthocytes (Spur) Rouleaux Fragmented RBCs Schistocytes ESR 11 Sodium Potassium Chloride Carbon Dioxide Anion Gap BUN Creatinine Creat Clearance w eGFR Random Glucose Calcium Phosphorus Magnesium Total Bilirubin AST ALT Alkaline Phosphatase C-Reactive Protein 5.3 H Total Protein Albumin Lipase Vitamin B12 TSH 1.30 Urine Color Urine Appearance Urine pH Ur Specific [place] Urine Protein Urine Glucose (UA) Urine Ketones Urine Blood Urine Nitrite Urine Bilirubin Urine Urobilinogen Ur Leukocyte Esterase Urine WBC (Auto) Urine RBC (Auto) Ur Epithelial Cells Urine Bacteria Urine Mucus Urine HCG, Qual Stool Neutral Fats Stool Total Fats Stool Occult Blood HIV 1&2 Antibody Screen Negative HIV P24 Antigen Negative 09/18/17 09/18/17 09/18/17 06:30 06:30 06:30 WBC 3.4 L RBC 4.13 Hgb 13.0 D Hct 36.8 MCV 89.3 MCH 31.6 MCHC 35.4 RDW 13.0 Plt Count 198 MPV 7.7 Neutrophils % No Result Required. Neutrophils % (Manual) 32.3 L Band Neutrophils % 3.0 Lymphocytes % No Result Required. Lymphocytes % (Manual) 27.3 Monocytes % (Manual) 12 H Eosinophils % (Manual) 0.0 Basophils % (Manual) 1.0 Myelocytes % (Man) 0 Promyelocytes % (Man) 0 Blast Cells % (Manual) 0 Nucleated RBC % 0 Metamyelocytes 0 Hypochromia 0 Toxic Granulation 0 Dohle Bodies 0 Platelet Estimate Normal Platelet Comment Present Polychromasia 0 Poikilocytosis 0 Basophilic Stippling 0 Anisocytosis 0 Microcytosis 0 Macrocytosis 0 Spherocytes 0 Sickle Cells 0 Target Cells 0 Tear Drop Cells 0 Ovalocytes 0 Stomatocytes 0 Helmet Cells 0 [place] Bodies 0 [place] Rings 0 Cee Cells 0 Acanthocytes (Spur) 0 Rouleaux 0 Fragmented RBCs 0 Schistocytes 0 ESR Sodium 143 Potassium 3.5 Chloride 112 H Carbon Dioxide 25 Anion Gap 6 L BUN 4 L Creatinine 0.5 L Creat Clearance w eGFR Random Glucose 87 Calcium 7.3 L Phosphorus 2.6 Magnesium 2.0 Total Bilirubin AST ALT Alkaline Phosphatase C-Reactive Protein Total Protein Albumin Lipase Vitamin B12 575 TSH Urine Color Urine Appearance Urine pH Ur Specific [place] Urine Protein Urine Glucose (UA) Urine Ketones Urine Blood Urine Nitrite Urine Bilirubin Urine Urobilinogen Ur Leukocyte Esterase Urine WBC (Auto) Urine RBC (Auto) Ur Epithelial Cells Urine Bacteria Urine Mucus Urine HCG, Qual Stool Neutral Fats Cancelled Stool Total Fats Cancelled Stool Occult Blood HIV 1&2 Antibody Screen HIV P24 Antigen 09/18/17 06:30 WBC RBC Hgb Hct MCV MCH MCHC RDW Plt Count MPV Neutrophils % Neutrophils % (Manual) Band Neutrophils % Lymphocytes % Lymphocytes % (Manual) Monocytes % (Manual) Eosinophils % (Manual) Basophils % (Manual) Myelocytes % (Man) Promyelocytes % (Man) Blast Cells % (Manual) Nucleated RBC % Metamyelocytes Hypochromia Toxic Granulation Dohle Bodies Platelet Estimate Platelet Comment Polychromasia Poikilocytosis Basophilic Stippling Anisocytosis Microcytosis Macrocytosis Spherocytes Sickle Cells Target Cells Tear Drop Cells Ovalocytes Stomatocytes Helmet Cells [place] Bodies [place] Rings Cee Cells Acanthocytes (Spur) Rouleaux Fragmented RBCs Schistocytes ESR Sodium Potassium Chloride Carbon Dioxide Anion Gap BUN Creatinine Creat Clearance w eGFR Random Glucose Calcium Phosphorus Magnesium Total Bilirubin AST ALT Alkaline Phosphatase C-Reactive Protein Total Protein Albumin Lipase Vitamin B12 Cancelled TSH Urine Color Urine Appearance Urine pH Ur Specific [place] Urine Protein Urine Glucose (UA) Urine Ketones Urine Blood Urine Nitrite Urine Bilirubin Urine Urobilinogen Ur Leukocyte Esterase Urine WBC (Auto) Urine RBC (Auto) Ur Epithelial Cells Urine Bacteria Urine Mucus Urine HCG, Qual Stool Neutral Fats Stool Total Fats Stool Occult Blood HIV 1&2 Antibody Screen HIV P24 Antigen HOSPITAL COURSE: Date of Admission:09/17/17 Date of Discharge: 09/18/17 Discharge Summary Reason For Visit: ABDOMINAL PAIN Current Active Problems Abdominal pain (Acute) Dehydration (Acute) Dehydration fever (Acute) Diarrhea (Acute) Viral gastroenteritis (Acute) Condition: Improved - Instructions Diet, Activity, Other Instructions: You were sent to the hospital because of worsening diarrhea, which is likely due to a virus. HIV and C. diff testing were negative. You were treated symptomatically with IV hydration and clear liquid diet. Recommendations: -Advance your diet slowly starting with bland, easy digestible foods, such as bananas, rice, apples, and toast. Drink plenty of fluids to stay hydrated. Avoid dairy products and high fat foods for the next 2 weeks. -Resume your daily activities as tolerated. Medications: -Continue taking your regular home medications as prescribed. -You should complete the Macrobid (antibiotic) course that your doctor prescribed for your UTI. Follow-ups: -Make an appointment to see Dr. Delatorre (Human Resources Support Specialist) in 1 week. He will have the results of the remainder of your stool and lab tests available. Make an appointment sooner if you are not better. -Make an appointment to see your primary care physician in 1-2 weeks for post- hospitalization evaluation. Please return the Emergency Department if you have worsening diarrhea, abdominal pain, can't tolerate any food or fluids, fever, chills, or any new or concerning symptoms. Referrals: Rene Delatorre MD [Staff Physician] - 1 Week Harinder Carrasco [Primary Care Provider] - Disposition: HOME - Home Medications Comprehensive Discharge Medication List: Ambulatory Orders Alprazolam 0.5 mg PO DAILY PRN 09/17/17 Ondansetron [Zofran -] 4 mg PO PRN PRN 09/17/17 Sertraline HCl 50 mg PO DAILY 09/17/17
[2017-09-18 18:23] VITALS: BP 127/74; TEMP 98.3
[2017-09-19 16:30] LABS: GLIADIN ANTIBODY IGA 3 units (0-19); GLIADIN ANTIBODY IGG 2 units (0-19); TRANSGLUTAMINASE IGG < 2 U/mL (0-5)
== END 2017-09-18 18:00 | disposition home or self-care (01) ==
LOC: JER 14:50 → JERBED 18:25 → J5S 09-18 00:41
PROVIDERS: ADMIT Internal Medicine; ATTEND Internal Medicine
PROC: 3E033GC Introduction of Other Therapeutic Substance into Peripheral Vein, Percutaneous Approach (ICD-10-PCS; principal; 2017-09-17)
PROC: 3E0337Z Introduction of Electrolytic and Water Balance Substance into Peripheral Vein, Percutaneous Approach (ICD-10-PCS; 2017-09-17)
PROC: 3E013GC Introduction of Other Therapeutic Substance into Subcutaneous Tissue, Percutaneous Approach (ICD-10-PCS; 2017-09-17)
DX: A08.4 Viral intestinal infection, unspecified (principal); E86.0 Dehydration; R50.9 Fever, unspecified; R10.84 Generalized abdominal pain; R19.7 Diarrhea, unspecified; F41.9 Anxiety disorder, unspecified; F32.9 Major depressive disorder, single episode, unspecified
CPT/HCPCS: 36415; 74176-TC; 80048; 80053; 81003; 81015; 82272; 82607; 82784; 83516; 83690; 83735; 84100; 84443; 84703; 85025; 85651; 86140; 87040; 87045; 87046; 87086; 87177; 87209; 87324; 87389; 87449; 96361; 96372; 96374; 96376; 99285-25; G0378; J7030